=== PATIENT | female | born 1985 | race Caucasian/White ===

== ENCOUNTER 2022-01-20 19:01 | Emergency (ER) | payer MEDICAID ==
[~2022-01-20] VITALS: Ht 157.5 cm; Wt 54.4 kg
[2022-01-20 19:10] VITALS: BP_SYST 124
[2022-01-20] MEDS ORDERED: ONDANSETRON 4 MG ODT TAB PO ONE (20:00)
[2022-01-20 20:26] LABS: BASOPHILS % (AUTO) 0.4 % (0.0-2.0); EOSINOPHILS # (AUTO) 0.1 K/uL (0.0-0.4); EOSINOPHILS % (AUTO) 1.3 % (0.0-4.0); HEMATOCRIT 39.4 % (36-48); HEMOGLOBIN 13.4 g/dL (12.0-16.0); LYMPHOCYTES # (AUTO) 1.9 K/uL (1.0-5.5); LYMPHOCYTES % (AUTO) 25.4 % (20.5-51.5); MEAN CORPUSCULAR HEMOGLOBIN 32 pg (27-31); MEAN CORPUSCULAR HGB CONC 34 % (32-36); MEAN CORPUSCULAR VOLUME 93 fL (79.0-98.0); MONOCYTES # (AUTO) 0.4 K/uL (0.0-1.0); MONOCYTES % (AUTO) 5.7 % (1.7-9.3); NEUTROPHILS # (AUTO) 5.2 K/uL (1.8-7.7); NEUTROPHILS % (AUTO) 67.2 % (40.0-70.0); PLATELET COUNT (AUTO) 186 K/uL (130-430); RED BLOOD CELL COUNT(AUTO) 4.24 MIL/uL (4.2-6.2); RED CELL DISTRIBUTION WIDTH 13.6 % (9.0-15.0); WHITE BLOOD COUNT (AUTO) 7.7 K/uL (4.8-10.8)
[2022-01-20 20:31] LABS: BILIRUBIN,URINE NEGATIVE (NEGATIVE); BLOOD, URINE NEGATIVE (NEGATIVE); COLOR,URINE YELLOW (YELLOW); GLUCOSE,URINE NEGATIVE (NEGATIVE); KETONES,URINE 3+ (NEGATIVE); LEUKOCYTE ESTERASE ,URINE 2+ (NEGATIVE); NITRITE, URINE POSITIVE (NEGATIVE); PROTEIN URINE NEGATIVE (NEGATIVE); UROBILINOGEN,URINE 0.2 (0.2-1.0)
[2022-01-20 20:36] LABS: CALCIUM 9.7 mg/dL (8.4-11.0); CREATININE 0.58 mg/dL (0.55-1.30); POTASSIUM 4.5 mmol/L (3.5-5.1)
[2022-01-20 20:37] LABS: CLARITY/URINE HAZY (CLEAR)
[2022-01-20 20:38] LABS: BACTERIA,URINE MANY /HPF (None Seen); RBC,URINE 0-3 /HPF (0-3); WBC,URINE 20-50 /HPF (0-3)
[2022-01-20 20:39] LABS: MUCUS,URINE 1+ /LPF (None Seen)
[2022-01-20 21:05] LABS: ALBUMIN 3.1 g/dL (3.4-4.8); TOTAL BILIRUBIN 0.6 mg/dL (0.0-1.0)
[2022-01-20] MEDS ORDERED: DIPHENHYDRAMINE INJ 50 MG/ML VIAL IVP ONE (21:30)
[2022-01-20] MEDS ORDERED: cefTRIAXone 1 GM IVPB PREMIX 50 ML IV ONE (21:30)
[2022-01-20] MEDS ORDERED: NACL 0.9% 1,000 ML IV ONE ×2 (21:30→23:30)
[2022-01-20] MEDS ORDERED: METOCLOPRAMIDE HCL 10 MG/2 ML VIAL IVP ONE (21:30)
[2022-01-21] MEDS ORDERED: NITR-85 PO (00:20)
[2022-01-21] MEDS ORDERED: DOXY1TAB3 PO (00:20)
[2022-01-21] MEDS ORDERED: PROM25SU57 RC (00:20)
[2022-01-21 02:12] VITALS: BP_SYST 110
== END 2022-01-21 00:50 | disposition home or self-care (01) ==
LOC: SED 19:01
DX: O23.41 Unspecified infection of urinary tract in pregnancy, first trimester (principal); E86.0 Dehydration; O21.8 Other vomiting complicating pregnancy; Z3A.13 13 weeks gestation of pregnancy
CPT/HCPCS: 36415; 76856; 80053; 81000; 82009; 83690; 84702; 85025; 87086; 96365; 96375; 99284; J0696; J1200; J2765; J7030; Q0162